=== PATIENT | male | born 1950 | race Caucasian/White ===

== ENCOUNTER 2021-08-05 09:14 | Emergency (ER) | payer MEDICARE, OTHER ==
[2021-08-05] MEDS ORDERED: XYLOCAINE 2% HCL 20 ML MDV ONE ×2 (09:19→09:25)
[2021-08-05] MEDS ORDERED: XYLOCAINE 2% HCL 20 ML MDV IJ ONE (09:19)
--- NOTE | 2021-08-05 09:24 | ERPHSYRPT ---
- History of Present Illness Time Seen by Provider: 08/05/21 09:30 Source: patient Exam Limitations: no limitations Physician History: Patient is a 71-year-old male presents to our ED status post fall off of the rear bumper of his truck. Patient states he was stepping down from the bed onto the bumper of his truck. Patient's foot got caught on a trailer wiring harness causing him to fall. Patient was approximately 2 feet off the ground. Patient has a laceration to the lateral eyebrow. He also has a laceration to the left thenar eminence. Patient states his left shoulder is a little sore but declined an x-ray. Patient also declined an x-ray of his left hand. Patient states that the pain is minimal and he does not think anything is fractured. Patient currently on Eliquis for bradycardia per patient. Patient denies loss of consciousness. No neck pain. Cervical spine cleared clinically. No associated chest pain or shortness of breath. No nausea vomiting or diaphoresis. Patient voices no other complaints or concerns at this time. Tetanus is up-to-date per patient. Timing/Duration: today Severity: moderate Modifying Factors: Improves With: nothing Associated Symptoms: denies symptoms, No nausea, No vomiting, No shortness of breath, No cough, No chills, No chest pain, No fever, No headaches, No syncope, No seizure, No weakness Allergies/Adverse Reactions: No Known Drug Allergies Allergy (Unverified 08/05/21 09:22) Home Medications: Apixaban [Eliquis] 5 mg PO DAILY 08/05/21 [History] Lisinopril 10 mg [Zestril 10 MG] 1 ea DAILY 08/05/21 [History] - Review of Systems Constitutional: No Symptoms, No Fever, No Chills Eyes: No Symptoms Ears, Nose, & Throat: No Symptoms Respiratory: No Symptoms, No Cough, No Dyspnea Cardiac: No Symptoms, No Chest Pain, No Edema, No Syncope Abdominal/Gastrointestinal: No Symptoms, Appetite Changes, No Abdominal Pain, No Nausea, No Vomiting, No Diarrhea Genitourinary Symptoms: No Dysuria Musculoskeletal: No Symptoms, No Back Pain, No Neck Pain Skin: No Symptoms, No Rash Neurological: No Symptoms, No Dizziness, No Focal Weakness, No Sensory Changes Psychological: No Symptoms Endocrine: No Symptoms Hematologic/Lymphatic: No Symptoms Immunological/Allergic: No Symptoms All Other Systems: Reviewed and Negative - Nursing Vital Signs Nursing Vital Signs: Initial Vital Signs Temperature 97.7 F 08/05/21 09:15 Pulse Rate 85 08/05/21 09:15 Respiratory Rate 18 08/05/21 09:15 Blood Pressure 161/96 08/05/21 09:15 O2 Sat by Pulse Oximetry 98 08/05/21 09:15 Pain Scale Pain Intensity 3 - Physical Exam General Appearance: no apparent distress, alert, other (2 cm laceration over the right lateral eyebrow. Just superior to the bahai.) Eye Exam: PERRL/EOMI, eyes nml inspection, No scleral icterus Ears, Nose, Throat Exam: normal ENT inspection, TMs normal, pharynx normal, moist mucous membranes, other (Superficial abrasion to right cheek measuring approximately 3 cm in diameter. No associated lacerations.) Neck Exam: normal inspection, non-tender, supple, full range of motion Respiratory Exam: normal breath sounds, lungs clear, No respiratory distress Cardiovascular Exam: regular rate/rhythm, normal heart sounds, normal peripheral pulses Gastrointestinal/Abdomen Exam: soft, normal bowel sounds, No tenderness, No mass Back Exam: normal inspection, normal range of motion, No CVA tenderness, No vertebral tenderness Extremity Exam: normal inspection, normal range of motion, pelvis stable, other (3 cm laceration thenar eminence left hand. No involvement of the recurrent branch of the radial nerve.) Neurologic Exam: alert, oriented x 3, cooperative, normal mood/affect, nml cerebellar function, nml station & gait, sensation nml, No motor deficits Skin Exam: normal color, warm, dry, No rash Lymphatic Exam: No adenopathy SpO2 Interpretation: normal O2 Delivery: Room Air Procedures - Laceration/Wound Repair Left Hand Time of Procedure: 10:07 Wound Location: Left Wound Length (cm): 3 Wound's Depth, Shape: superficial Wound Explored: clean Irrigated: Yes Hibiclens Prep: Yes Anesthesia: local, 2% Lidocaine Volume Anesthetic (ccs): 3 Wound Debrided: No debridement indicated Wound Repaired With: sutures Suture Size/Type: 5-0, ethilon Number of Sutures: 5 Layer Closure?: No Sterile Dressing Applied?: Yes Splint Applied?: No Progress: Patient reassessed. Patient left upper extremity neurovascular intact distally post procedure. 08/05/21 10:08 08/05/21 10:09 Laceration to right eyebrow repaired as well. Laceration length to right eyebrow 2 cm. The laceration is stellate with smaller lacerations adjacent to the main laceration. The area was anesthetized with 2% lidocaine. 3 cc lidocaine was used to anesthetize wound. The wound was irrigated by RN using normal saline and Hibiclens. Wound was repaired using 6-0 nylon. 6 simple interrupted sutures were placed. No complications during or after procedure. Patient tolerated procedure well. - Course Nursing assessment & vital signs reviewed: Yes - CT Exams Head CT Interpretation: Tele-radiologist Report (CT shows age-appropriate global atrophy and mild periventricular degenerative microischemia bilaterally. No acute intracranial hemorrhage abnormal extra-axial fluid collection or mass- effect. Fourth ventricle is midline without hydrocephalus. Bony calvarium intact. Visualized paranasal sinuses a) Ordered Tests: Active Orders 24 hr Category Date Time Status HEAD WITHOUT CONTRAST [CT] Stat Exams 08/05/21 09:18 Completed Medication Summary Discontinued Medications Generic Name Dose Route Start Last Admin Trade Name Lorenzoq PRN Reason Stop Dose Admin Lidocaine HCl 5 ml 08/05/21 09:19 08/05/21 09:26 Xylocaine 2% Hcl 20 Ml Mdv IJ 08/05/21 09:20 5 ml STAT ONE Administration Lidocaine HCl Confirm 08/05/21 09:19 Xylocaine 2% Hcl 20 Ml Mdv Administered 08/05/21 09:20 Dose 10 ml .ROUTE .STK-MED ONE Lidocaine HCl Confirm 08/05/21 09:25 Xylocaine 2% Hcl 20 Ml Mdv Administered 08/05/21 09:26 Dose 5 ml .ROUTE .STK-MED ONE - Progress Progress: improved Progress Note: Patient reassessed. He is well. Left hand wound and right eyebrow wound were repaired using simple interrupted sutures. 2% lidocaine was used anesthetize the lacerations. Both lacerations were copiously irrigated. Patient declined x-rays of his left hand and left shoulder. CT head was negative for acute intracranial pathology. The impression on the CT head was nonacute senile brain. Patient otherwise feels well. He has no other complaints. Patient states he is ready for discharge. Patient agrees to follow-up with primary care doctor within 48 hours for evaluation. Portions of this note were created with voice recognition technology. There may be grammatical, spelling, punctuation or sound alike errors 08/05/21 10:12 08/05/21 10:14 Topical bacitracin was applied to the wounds. No indication for oral antibiotics. Counseled pt/family regarding: diagnosis, need for follow-up, rad results - Departure Departure Disposition: Home Clinical Impression: Fall, Eyebrow laceration, Hand laceration, Cheek abrasion, non-infected, Head injury Condition: Stable Critical Care Time: No Referrals: TY KNUTSON MD [Primary Care Provider] - Additional Instructions: Discharge/Care Plan ALDEN DUONG was seen on 08/05/21 in the Emergency Room. The patient was counseled regarding Diagnosis,Lab results, Imaging studies, need for follow up and when to return to the Emergency Room. Prescriptions given: Discharge Note I have spoken with the patient and/or caregivers. I have explained the patient's condition, diagnosis and treatment plan based on the information available to me at this time. I have answered the patient's and/or caregiver's questions and addressed any concerns. The patient and/or caregivers have as good understanding of the patient's diagnosis, condition and treatment plan as can be expected at this point. The vital signs have been stable. The patient's condition is stable and appropriate for discharge from the emergency department. The patient will pursue further outpatient evaluation with the primary care physician or other designated or consulting physician as outlined in the discharge instructions. The patient and/or caregivers are agreeable to this plan of care and follow-up instructions have been explained in detail. The patient and/or caregivers have received these instruction. The patient/and or caregivers are aware that any significant change in condition or worsening of symptoms should prompt an immediate return to this or the closest emergency department or call 911.
--- NOTE | 2021-08-05 09:42 | XRAY ---
Indication: Right eye/cheek injury following fall. Multiple contiguous axial images obtained through the head without contrast. Comparison: None Age-appropriate global atrophy and mild periventricular degenerative micro-ischemia bilaterally. No acute intracranial hemorrhage, abnormal extra-axial fluid collection, or mass effect. Fourth ventricle is midline without hydrocephalus. Bony calvarium intact. Visualized paranasal sinuses and mastoid air cells are clear. Impression: Nonacute senile brain.
[2021-08-05 10:16] VITALS: BP 147/99; PULSE 70; O2SAT 97
== END 2021-08-05 10:25 | disposition home or self-care (01) ==
LOC: ED 09:14
DX: S01.111A Laceration without foreign body of right eyelid and periocular area, initial encounter (principal); S61.412A Laceration without foreign body of left hand, initial encounter; S00.81XA Abrasion of other part of head, initial encounter; W17.89XA Other fall from one level to another, initial encounter
CPT/HCPCS: 12002; 12011; 70450; 99284